=== PATIENT | female | born 1995 | race Caucasian/White ===

== ENCOUNTER 2019-05-05 20:34 | Inpatient (IN) | payer BC ==
[2019-05-05] MEDS ORDERED: BUTORPHANOL TARTRATE 1 MG/ML VIAL ONE ×2 (21:27)
[2019-05-05] MEDS ORDERED: OXYTOCIN 20 UNITS in 0.9% NS 20 UNIT/1,000 ML INFUS.BAG IV ONE ×2 (21:27→23:41)
[2019-05-05] MEDS ORDERED: PROMETHAZINE HCL 25 MG/1 ML VIAL ONE (21:27)
[2019-05-05] MEDS ORDERED: LIDOCAINE HCL 1% PRESERVATIVE FREE - 30ML VIAL ONE (21:28)
[2019-05-05] MEDS ORDERED: PROMETHAZINE HCL 25 MG/1 ML VIAL IVPUSH ONE (21:29)
[2019-05-05] MEDS ORDERED: BUTORPHANOL TARTRATE 1 MG/ML VIAL IVPB ONE (21:29)
[2019-05-05] MEDS ORDERED: ELECTROLYTE-148 SOLN 1,000 ML IV SCH (21:30)
[2019-05-05 21:36] LABS: BASO % 0.6 % (0-2.0); EOS % 0.2 % (0-4.5); HEMATOCRIT 39.3 % (32.4-45.2); LYMPH % 16.3 % (8-40); MCH 29.8 pg (25.7-33.7); MCHC 33.1 g/dl (32.0-36.0); MEAN CELL VOLUME 90.2 fl (80-96); MEAN PLT VOLUME 10.3 fl (7.5-11.1); MONO % 7.2 % (3.8-10.2); NEUT % 75.7 % (42.8-82.8); PLATELET COUNT 156 K/MM3 (134-434); RBC 4.36 M/mm3 (3.60-5.2); RDW 13.3 % (11.6-15.6); WHITE BLOOD COUNT 12.8 K/mm3 (4.0-10.0)
[2019-05-05 21:48] LABS: INR 0.9 (0.83-1.09); PROTHROMBIN TIME (PATIENT) 10.6 SEC (9.7-13.0)
[2019-05-05 22:00] LABS: BLOOD UREA NITROGEN 5.8 mg/dL (7-18); CALCIUM 9.1 mg/dL (8.5-10.1); CREATININE 0.6 mg/dL (0.55-1.3); POTASSIUM 3.3 mmol/L (3.5-5.1)
[2019-05-05 22:05] VITALS: BMI 24.0
[2019-05-05] MEDS: OXYTOCIN 20 UNITS in 0.9% NS 20 UNIT/1,000 ML INFUS.BAG IV SCH (22:25)
--- NOTE | 2019-05-05 22:40 | HP ---
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: No: Alzheimer's, CVA, Dementia, Migraine, Multiple Sclerosis, Peripheral Neuropathy, Parkinson's, Seizure, Syncope, TIA, Vertigo, Other Cardiovascular: No: AFIB, Aneurysm, Aortic Insufficiency, Aortic Stenosis, CAD, CHF, Deep Vein Thrombosis, HTN, Hyperlipdemia, AL, Mitral Insufficiency, Mitral Stenosis, Murmur, Pulmonary Hypertension, Other Pulmonary: No: Asthma, Bronchitis, Cancer, COPD, O2 Dependent, Pneumonia, Previously Intubated, Pulmonary Embolus, Pulmonary Fibrosis, Sleep Apnea, Other Gastrointestinal: No: Ascites, Cancer, Constipation, Crohn's Disease, Diverticulitis, Diverticulosis, Esophageal Varices, Gastritis, GERD, GI Bleed, Hemorrhoids, Hiatal Hernia, Inflamatory Bowel Disease, Irritable Bowel Disease, Pancreatitis, Peptic Ulcer Disease, Ulcerative Colitis, Other Hepatobiliary: No: Cirrhosis, Cholelithiasis, Cholecystitis, Choledocholithiasis , Hepatitis A, Hepatitis B, Hepatitis C, Other Renal/: No: Renal Failure, Renal Inusuff, BPH, Cancer, Hematuria, Hemodialysis , Neurogenic Bladder, Renal Calculi, UTI, Other Reproductive: No: Ectopic , Endometriosis, Fibroids, PID, Polycystic Ovary Syndrome, Postmenopausal, Other ...: 2 ...Para: 1 ...Term: 0 ...: 1 ... Weeks Gestation by Dates: 35.4 ...EDC by Dates: 06/05/19 Heme/Onc: No: Anemia, B12 Deficiency, Bleeding Disorder, Cancer, Current Chemotherapy, Current Radiation Therapy, Hemochromatosis, Hypercoaguable State, Myeloproliferative Synd, Sickle Cell Disease, Sickle Cell Trait, Thrombocytopenia, Other Infectious Disease: No: AIDS, C-Diff, Herpes Zoster, HIV, MRSA, STD's, Tuberculosis, VREF, Other Psych: No: Addictions, Anxiety, Bipolar, Depression, Panic, Psychosis, Schizophrenia, Other Musculoskeletal: No: Bursitis, Chronic low back pain, Hemiparesis, Hemiplegia, Osteoarthritis, Paraplegia, Other Rheumatology: No: Fibromyalgia, Gout, Lupus, Rheumatoid Arthritis, Sarcoidosis, Vasculitis, Other ENT: No: Allergic Rhinitis, Sinusitis, Other Endocrine: No: Ramakrishna's Disease, [place]'s Disease, Diabetes Insipidus, Diabetes Mellitus, Hyperparathyroidism, Hyperthyroidism, Hypothyroidism, Osteopenia, SIADH, Other Dermatology: No: Basal Cell, Cellulitis, Eczema, Melanoma, Psoriasis, Squamous Cell, Other - Past Surgical History Past Surgical History: No: None, AAA Repair, AICD, Amputation, Appendectomy, Arthrosocopy, AV Fistula/Graft, Bariatric Surgery, Breast Biopsy, Bypass, CABG, Carotid Endarterectomy, Cataract Removal, Cholecystectomy, Colectomy, Colonoscopy, Colostomy, Craniotomy, , Cystectomy, Hernia Repair, Hysterectomy, Ileal Conduit, Ileosotomy, Joint Replacement, Kidney Transplant, Laminectomy, Liver Transplant, Mastectomy, Nephrectomy, Oopherectomy, Orchiectomy, Permanent Pacemaker, Prostatectomy, Splenectomy, Stent, Thoracotomy , TURP, Tonsillectomy, Tubal Ligation, Upper Endoscopy, Valve Replacement, Vasectomy, Vein Stripping/Ligation Hx Myomectomy: No Hx Transabdominal Cerclage: No - Advance Directives Advance Directives: Yes: Living Will - Smoking History Smoking history: Never smoked Have you smoked in the past 12 months: No - Alcohol/Substance Use Hx Alcohol Use: No History of Substance Use: reports: None - Social History Usual Living Arrangement: Yes: With Spouse Do you think of yourself as: Straight/Heterosexual ADL: Independent History of Recent Travel: No Home Medications - Allergies Allergies/Adverse Reactions: Allergies Allergy/AdvReac Type Severity Reaction Status Date / Time No Known Allergies Allergy Verified 05/05/19 22:08 - Home Medications Home Medications: Ambulatory Orders Pnv No.95/Ferrous Fum/Folic AC [ Vitamin Tablet] 1 each PO DAILY Family Medical History Family History: Denies Review of Systems - Review of Systems Constitutional: reports: No Symptoms Eyes: reports: No Symptoms HENT: reports: No Symptoms Neck: reports: No Symptoms Cardiovascular: reports: No Symptoms Respiratory: reports: No Symptoms Gastrointestinal: reports: No Symptoms Genitourinary: reports: No Symptoms Breasts: reports: No Symptoms Reported Musculoskeletal: reports: No Symptoms Integumentary: reports: No Symptoms Neurological: reports: No Symptoms Endocrine: reports: No Symptoms Hematology/Lymphatic: reports: No Symptoms Psychiatric: reports: No Symptoms Physical Exam - Maternity Vital Signs: Vital Signs Temperature 98.7 F 05/05/19 21:00 Pulse Rate 121 H 05/05/19 21:00 Respiratory Rate 20 05/05/19 21:00 Blood Pressure 109/70 05/05/19 21:00 O2 Sat by Pulse Oximetry (%) Constitutional: Yes: Well Nourished, No Distress, Calm Eyes: Yes: WNL, Conjunctiva Clear, EOM Intact HENT: Yes: WNL, Atraumatic, Normocephalic Neck: Yes: WNL, Supple, Trachea Midline Cardiovascular: Yes: WNL, Regular Rate and Rhythm Lungs: Clear to auscultation Breast(s): Yes: WNL - Abdominal Exam/OB Fundal Height: 36 Number of Fetuses: Single Presentation: Vertex Contractions: Yes Regularity: Regular Intensity: Mod/Strong Monitor Mode: External Heart Rate (range): 150 Heart Rate Location: [facility] Category: I Accelerations: Uniform Decelerations: None - Vaginal Exam/OB Vaginal Bleediing: No Speculum Exam: No Dilatation (cm): 7 Effacement (%): 80 Amniotic Membrane Status: Bulging Presentation: Vertex/Position Station: -2 - Physical Exam Musculoskeletal: Yes: WNL Extremities: Yes: WNL Edema: Yes Edema: LUE: 1+, RUE: 1+, LLE: 1+, RLE: 1+ Integumentary: Yes: WNL Deep Tendon Reflex Grade: Normal +2 ...Motor Strength: WNL Psychiatric: Yes: WNL, Alert, Oriented - Labs Lab Results: CBC, BMP 05/05/19 21:15 05/05/19 21:15 Hemorrhage Risk Assessment - Risk Factors Medium Risk Factors: Yes: None High Risk Factors: Yes: None Risk Score: 1 Risk Level: Medium Risk Assessment/Plan active laboring, pushing soon, most likely will miss epidural, asking for stadol
[2019-05-05] MEDS ORDERED: WITCH HAZEL 50% (TUCKS) 40 PAD/JAR PAD TP PRN (22:41)
[2019-05-05] MEDS ORDERED: BISACODYL 10 MG SUPP.RECT RC PRN (22:41)
[2019-05-05] MEDS ORDERED: BENZOCAINE 28 GM HEMORRHOIDAL OINTMENT TP PRN (22:41)
[2019-05-05] MEDS ORDERED: oxyCODONE HCL 5 MG TABLET PO PRN (22:41)
[2019-05-05] MEDS ORDERED: BENZOCAINE 20% 57 GM BOTTLE TP PRN (22:41)
[2019-05-05] MEDS ORDERED: METHYLERGONOVINE MALEATE 0.2 MG/1 ML AMP IM PRN (22:41)
--- NOTE | 2019-05-05 22:41 | PN ---
Progress Note (short form) - Note Progress Note: 930 pm 9 cm, 0 station, 100%, uc q 3 min, reactive , pt is pushing uncontrollable
--- NOTE | 2019-05-05 22:46 | PN ---
Delivery - Delivery Vaginal Delivery: No Problems Type of Anesthesia: None Episiotomy/Laceration: None EBL (cc): 200 Delivery, Single - Stages of Labor Date 1st Stage Initiatied: 05/05/19 Date 2nd Stage Initiated: 05/05/19 Date of Delivery: 05/05/19 Date Placenta Delivered: 05/05/19 Placenta: Yes: Spontaneous - Condition of Machine Setter Supervisor/Customer Care Team Coach Present: No Gender: Female Position: Left, OA - Feeding Plan Initial Plan: Elected not to breastfeed exclusively throughout hospitalization Benefits of Exclusively reinforced: Yes Remarks - Remarks Remarks: no complications, pushing well
[2019-05-05] MEDS ORDERED: oxyCODONE HCL 5 MG TABLET ONE (23:41)
[2019-05-06] MEDS: IBUPROFEN 600 MG TABLET (FP) PO PRN ×2 (05:09→11:26)
[2019-05-06] MEDS: ACETAMINOPHEN 325 MG TABLET (FP) PO PRN ×2 (05:10→11:27)
[2019-05-06] MEDS: OXYTOCIN 20 UNITS in 0.9% NS 20 UNIT/1,000 ML INFUS.BAG IV SCH (06:00)
[2019-05-06 08:19] LABS: BASO % 0.2 % (0-2.0); EOS % 0.1 % (0-4.5); HEMATOCRIT 31.9 % (32.4-45.2); HEMOGLOBIN 10.8 GM/dL (10.7-15.3); LYMPH % 9.4 % (8-40); MCH 30.2 pg (25.7-33.7); MEAN CELL VOLUME 88.7 fl (80-96); MEAN PLT VOLUME 10.7 fl (7.5-11.1); MONO % 6.4 % (3.8-10.2); NEUT % 83.9 % (42.8-82.8); PLATELET COUNT 122 K/MM3 (134-434); RDW 13.4 % (11.6-15.6); WHITE BLOOD COUNT 16.7 K/mm3 (4.0-10.0)
[2019-05-06] MEDS ORDERED: FLU VACCINE QUAD 60 MCG/0.5 ML (MDV 19-20) IM ONE (10:00)
--- NOTE | 2019-05-06 21:51 | PN ---
Post Progress Note Post Day: 1 Type of Delivery: Vital Signs: Vital Signs Temperature 98.3 F 05/06/19 18:00 Pulse Rate 91 H 05/06/19 18:00 Respiratory Rate 20 05/06/19 18:00 Blood Pressure 95/55 L 05/06/19 18:00 O2 Sat by Pulse Oximetry (%) Breast Exam: Yes: Soft Uterus: Yes: Fundus Firm, Fundus below umbilicus, Non-tender Abdomen/GI: Yes: Abdomen soft, Passing flatus, Tolerating PO Lochia: Yes: Serosa Lochia, amount: Small Extremities: Yes: Calves non-tender Perineum: Yes: Intact Activity: Ambulating (dc pt home tomorrow ) - Labs Labs: CBC WBC 16.7 K/mm3 (4.0-10.0) H 05/06/19 07:30 RBC 3.60 M/mm3 (3.60-5.2) 05/06/19 07:30 Hgb 10.8 GM/dL (10.7-15.3) 05/06/19 07:30 Hct 31.9 % (32.4-45.2) L D 05/06/19 07:30 MCV 88.7 fl (80-96) 05/06/19 07:30 MCH 30.2 pg (25.7-33.7) 05/06/19 07:30 MCHC 34.0 g/dl (32.0-36.0) 05/06/19 07:30 RDW 13.4 % (11.6-15.6) 05/06/19 07:30 Plt Count 122 K/MM3 (134-434) L D 05/06/19 07:30 MPV 10.7 fl (7.5-11.1) 05/06/19 07:30 Absolute Neuts (auto) 14.0 K/mm3 (1.5-8.0) H 05/06/19 07:30 Neutrophils % 83.9 % (42.8-82.8) H 05/06/19 07:30 Lymphocytes % 9.4 % (8-40) D 05/06/19 07:30 Monocytes % 6.4 % (3.8-10.2) 05/06/19 07:30 Eosinophils % 0.1 % (0-4.5) 05/06/19 07:30 Basophils % 0.2 % (0-2.0) 05/06/19 07:30 Nucleated RBC % 0 % (0-0) 05/06/19 07:30
--- NOTE | 2019-05-06 21:55 | DS ---
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 Vital Signs: Vital Signs Temperature 98.3 F 05/06/19 18:00 Pulse Rate 91 H 05/06/19 18:00 Respiratory Rate 20 05/06/19 18:00 Blood Pressure 95/55 L 05/06/19 18:00 O2 Sat by Pulse Oximetry (%) Constitutional: Yes: Well Nourished, No Distress, Calm Eyes: Yes: WNL, Conjunctiva Clear, EOM Intact HENT: Yes: WNL, Atraumatic, Normocephalic Neck: Yes: WNL, Supple, Trachea Midline Cardiovascular: Yes: WNL, Regular Rate and Rhythm Respiratory: Yes: WNL, Regular, CTA Bilaterally Gastrointestinal: Yes: WNL, Normal Bowel Sounds, Soft ...Rectal Exam: Yes: WNL Renal/: Yes: WNL Pelvis: Yes: WNL External Genitalia: Yes: Normal Internal Exam Deferred: Yes Vaginal Exam: Yes: Normal Cervix: Yes: Normal Uterus: Yes: Normal Adnexa: Normal: Bilateral ....Post : Yes: Uterus firm, Uterus non-tender Breast(s): Yes: WNL Musculoskeletal: Yes: WNL Extremities: Yes: WNL Edema: Yes Edema: LUE: 1+, RUE: 1+, LLE: 1+, RLE: 1+ Integumentary: Yes: WNL Wound/Incision: Yes: Clean/Dry, Well Approximated Neurological: Yes: WNL, Alert, Oriented ...Motor Strength: WNL Psychiatric: Yes: WNL, Alert, Oriented Labs: CBC, BMP 05/06/19 07:30 05/05/19 21:15 Delivery - Delivery Vaginal Delivery: No Problems Type of Anesthesia: None Episiotomy/Laceration: None EBL (cc): 200 Delivery, Single - Stages of Labor Date 1st Stage Initiatied: 05/05/19 Time 1st Stage Initiated: 19:00 Date 2nd Stage Initiated: 05/05/19 Time 2nd Stage Initiated: 22:00 Date of Delivery: 05/05/19 Time of Delivery: 22:23 Time Placenta Delivered: 22:25 Placenta: Yes: Spontaneous - Condition of Administrative Office Specialist/Chute Tapper Present: No Gender: Female Weight: 2.466 kg Position: Left, OA Total Hours ROM (Hrs/Mins): 48M - 1 Minute Total Score: 9 5 Minutes Total Score: 9 - [place] Feeding Plan Initial Plan: Elected not to breastfeed exclusively throughout hospitalization Benefits of Exclusively reinforced: Yes Discharge Summary Problems reviewed: Yes Reason For Visit: LABOR Procedures: Principal: Other Procedures: none Hospital Course: uneventful Health Concerns: none Plan of Treatment: oob as much as possible Goals: return to work in 8 weeks Condition: Good - Instructions Diet, Activity, Other Instructions: Physical activity Resume your normal everyday activity as tolerated no heavy lifting or exercise until seen by your surgeon. You may walk unlimited [place] of and climb stairs. You may resume driving the car when you feel safe and comfortable behind the wheel. No sexual activity as instructed. Wound care If you have a bandage, leave it on, and keep dry for 48-72 hours. After that time discard the outer bandage. If they are tapes on the skin under the out of bandage leave them in place. They will peel off in the next 7 to 10 days. Do Not Peel them off. You may shower the day after surgery. If there are tapes present on the skin, you may shower over them. Diet There are no dietary restrictions. Eat healthy, high-fiber foods. Drink 6 to 8 glasses of liquid each day. This will assist in keeping your bowels are regular. Pain management You may take Tylenol or acetaminophen or Ibuprofen (for example, Motrin, Advil etc.) from my pain prescription medication is ordered should be taken as prescribed for moderate to severe pain. Call MD for any of the following: call [phone] trujillo for 6 weeks appointment Severe pain not relieved by medication Fever of 101 or higher Excessive bleeding or drainage on dressing Inability to urinate Disposition: HOME - Home Medications Comprehensive Discharge Medication List: Ambulatory Orders Pnv No.95/Ferrous Fum/Folic AC [ Vitamin Tablet] 1 each PO DAILY Prescription Drug Monitoring Program (I-STOP) results: I-STOP reviewed and no issues identified
[2019-05-06] MEDS ORDERED: SENNOSIDES/DOCUSATE COMBO (SENNA PLUS) TABLET (UD) PO PRN (22:00)
--- NOTE | 2019-05-07 07:20 | PN ---
Post Progress Note Post Day: 2 Type of Delivery: Vital Signs: Vital Signs Temperature 98.3 F 05/06/19 22:00 Pulse Rate 80 05/06/19 22:00 Respiratory Rate 18 05/06/19 22:00 Blood Pressure 106/63 05/06/19 22:00 O2 Sat by Pulse Oximetry (%) Breast Exam: Yes: Soft Uterus: Yes: Fundus Firm, Fundus below umbilicus Abdomen/GI: Yes: Abdomen soft, Passing flatus, Tolerating PO Lochia: Yes: Serosa Lochia, amount: Small Extremities: Yes: Calves non-tender Perineum: Yes: Intact Activity: Ambulating (dc pt home today) - Labs Labs: CBC WBC 16.7 K/mm3 (4.0-10.0) H 05/06/19 07:30 RBC 3.60 M/mm3 (3.60-5.2) 05/06/19 07:30 Hgb 10.8 GM/dL (10.7-15.3) 05/06/19 07:30 Hct 31.9 % (32.4-45.2) L D 05/06/19 07:30 MCV 88.7 fl (80-96) 05/06/19 07:30 MCH 30.2 pg (25.7-33.7) 05/06/19 07:30 MCHC 34.0 g/dl (32.0-36.0) 05/06/19 07:30 RDW 13.4 % (11.6-15.6) 05/06/19 07:30 Plt Count 122 K/MM3 (134-434) L D 05/06/19 07:30 MPV 10.7 fl (7.5-11.1) 05/06/19 07:30 Absolute Neuts (auto) 14.0 K/mm3 (1.5-8.0) H 05/06/19 07:30 Neutrophils % 83.9 % (42.8-82.8) H 05/06/19 07:30 Lymphocytes % 9.4 % (8-40) D 05/06/19 07:30 Monocytes % 6.4 % (3.8-10.2) 05/06/19 07:30 Eosinophils % 0.1 % (0-4.5) 05/06/19 07:30 Basophils % 0.2 % (0-2.0) 05/06/19 07:30 Nucleated RBC % 0 % (0-0) 05/06/19 07:30
[2019-05-07] MEDS ORDERED: DIPHTH,PERTUSS(ACELL),TET 0.5 ML DISP.SYRIN IM ONE (10:00)
[2019-05-07] MEDS ORDERED: FLU VACC QS2019-20(6MOS UP)/PF 60 MCG/0.5 ML SYRINGE IM ONE (10:00)
[2019-05-07] MEDS: IBUPROFEN 600 MG TABLET (FP) PO PRN (10:54)
[2019-05-07] MEDS: ACETAMINOPHEN 325 MG TABLET (FP) PO PRN (10:54)
[2019-05-07 12:45] VITALS: BP 100/62; PULSE 80; TEMP 98
== END 2019-05-07 12:25 | disposition home or self-care (01) | DRG 560 ==
LOC: JDEL 20:34 → JLDR 21:05 → J3W 05-06 00:35
PROVIDERS: ADMIT Obstetrics & Gynecology; ATTEND Obstetrics & Gynecology
PROC: 10E0XZZ Delivery of Products of Conception, External Approach (ICD-10-PCS; principal; 2019-05-05)
PROC: 3E0334Z Introduction of Serum, Toxoid and Vaccine into Peripheral Vein, Percutaneous Approach (ICD-10-PCS; 2019-05-06)
DX: O60.14X0 Preterm labor third trimester with preterm delivery third trimester, not applicable or unspecified (principal); Z3A.36 36 weeks gestation of pregnancy; Z29.13 Encounter for prophylactic Rho(D) immune globulin; Z37.0 Single live birth
CPT/HCPCS: 36415; 59409; 80048; 85025; 85461; 85610; 85730; 86593; 86850; 86870; 86900; 86901; 86902; 86999; 87389; 90686; 90715; G0008